=== PATIENT | female | born 1960 | race Caucasian/White ===

== ENCOUNTER 2016-11-24 04:25 | Emergency (ER) | payer BC ==
[~2016-11-24] VITALS: Ht 160 cm; Wt 72.0 kg
[2016-11-24 04:33] VITALS: BP 133/87
[2016-11-24 05:45] LABS: CLARITY URINE TURBID (CLEAR); COLOR URINE YELLOW (YELLOW); GLUCOSE URINE NEGATIVE (NEGATIVE); KETONES URINE NEGATIVE (NEGATIVE); LEUKOCYTE ESTERASE URINE 3+ (NEGATIVE); NITRITE URINE NEGATIVE (NEGATIVE); OCCULT BLOOD URINE 3+ (NEGATIVE); PROTEIN URINE 1+ (NEGATIVE); SPECIFIC GRAVITY URINE 1.022 (1.005-1.030); UROBILINOGEN URINE 0.2 E.U./dL (0.2-1.0)
[2016-11-24] MEDS ORDERED: CIPROFLOXACIN HCL 250MG TABLET PO NR (06:00)
[2016-11-24 06:25] LABS: SQUAMOUS EPITHELIAL CELL URINE FEW /lpf (RARE/1+); WBC URINE TNTC /hpf (0-2)
[2016-11-24 06:27] LABS: RBC URINE 25-50 /hpf (0-2)
[2016-11-24 06:29] LABS: BACTERIA URINE 1+
== END 2016-11-24 06:07 | disposition home or self-care (01) ==
LOC: ER 05:01
DX: N30.01 Acute cystitis with hematuria (principal); R03.0 Elevated blood-pressure reading, without diagnosis of hypertension
CPT/HCPCS: 81001; 87086; 99284